=== PATIENT | male | born 1945 | race Caucasian/White ===

== ENCOUNTER → 2016-07-18 | Outpatient (CLI) | payer MEDICARE, BC ==
[~2016-07-18] MED LIST: FISH1000 PO; LORTA5 PO; METF-324 PO; WARF7.5 PO; ZOLP10TA3 PO; [UNRECOGNIZED DRUG - OTHER] PO
--- NOTE | 2016-07-19 08:55 | RSPPFT ---
DATE OF PROCEDURE: 07/18/16 COMMENTS: Spirometry with FVC of 4.0 predicted 4.0, FEV1 of 3.2 predicted 2.6, FEV1/FVC ratio 81% predicted 66%. Lung volumes show mild air trapping with RV at 3.1 predicted 2.4. DLCO is 63% of predicted. IMPRESSION: On the basis of the above, apart from a mild increase in the residual volume and decreased DLCO, the patient's flow values, lung volumes and DLCO are within the predicted range.
== END ==
LOC: HRSP 09:08
PROVIDERS: ATTEND Internal Medicine Pulmonary Disease
DX: J84.10 Pulmonary fibrosis, unspecified (principal)
CPT/HCPCS: 94060; 94620; 94726; 94729

== ENCOUNTER → 2017-07-13 | Outpatient (CLI) | payer MEDICARE, BC | LOC: HRSP 10:54 | PROVIDERS: ATTEND Internal Medicine Pulmonary Disease | DX: J84.10 Pulmonary fibrosis, unspecified (principal) | CPT/HCPCS: 94060; 94618; 94726; 94729 ==